=== PATIENT | male | born 1960 | race Two or more races ===

== ENCOUNTER 2019-10-02 12:21 | Emergency (ER) | payer OTHER ==
[~2019-10-02] VITALS: Ht 165.1 cm; Wt 69.4 kg
[~2019-10-02 12:21] MED LIST: PARA EL COLESTEROL; PREVACID15 MG PO; ZOCOR20 MG; ZOCOR20 MG PO
[2019-10-02] MEDS ORDERED: IBU400 MG PO (17:19)
== END 2019-10-02 17:45 | disposition home or self-care (01) ==
LOC: ER 12:21
DX: M54.5 Low back pain (principal); M25.552 Pain in left hip